=== PATIENT | female | born 1970 | race Caucasian/White ===

== ENCOUNTER 2019-10-13 08:21 | Emergency (ER) | payer BC ==
[2019-10-13] MEDS ORDERED: IPRATROPIUM/ALBUTEROL 0.5-2.5 MG/3 ML AMPUL NEB ONE (09:14)
--- NOTE | 2019-10-13 09:17 | ER Document Report ---
HPI - HPI Time Seen by Provider: 10/13/19 09:09 Pain Level: 3 Notes: 48-year-old female presents to the emergency room with complaints of a cough for the last 5 days, productive of green, denies a history of smoking, asthma, COPD. Patient states that if she had a fever of 101 with head congestion, shortness of breath with coughing. Has not tried any [id number] medications. Sick contacts. Patient did get a flu shot this year. Denies fevers, chills, chest pain,palpitations, shortness of breath, dyspnea, nausea, vomiting, diarrhea, abdominal pain, hematuria,blurred vision, double vision, loss of vision, speech changes, LH, dizziness, syncope, headaches, ST, neck pain, weakness, bowel or bladder dysfunction, saddle anesthesia, numbness or tingling in bilateral upper or lower extremities equally, muscle paralysis, weakness in bilateral upper or lower extremities equally or rash. - REPRODUCTIVE Reproductive: DENIES: : Past Medical History - General Information source: Patient - Social History Smoking Status: Never Smoker Chew tobacco use (# tins/day): No Frequency of alcohol use: None Drug Abuse: None Family History: Reviewed & Not Pertinent Patient has suicidal ideation: No Patient has homicidal ideation: No Vertical Provider Document - CONSTITUTIONAL Agree With Documented VS: Yes Exam Limitations: No Limitations General Appearance: WD/WN Notes: PHYSICAL EXAMINATION:reviewed vital signs by RN GENERAL: Well-appearing, well-nourished and in no acute distress. HEAD: Atraumatic, normocephalic. EYES: Pupils equal round and reactive to light, extraocular movements intact, conjunctiva are normal. ENT: TM intact with bilateral serous effusion, no erythema. Nares boggy bilaterally, oropharynx with erythema without exudates. Moist mucous membranes. NECK: Normal range of motion, supple without lymphadenopathy LUNGS: Noted wheezing in bilateral upper lobes. After breathing treatment, b reath sounds clear in all lobes no wheezes rales or rhonchi. HEART: Regular rate and rhythm without murmurs ABDOMEN: Soft, nontender, nondistended abdomen. No guarding, no rebound. No masses appreciated. Female : deferred Musculoskeletal: Normal range of motion, no pitting or edema. No cyanosis. NEUROLOGICAL: Cranial nerves grossly intact. Normal speech, normal gait. Normal sensory, motor exams PSYCH: Normal mood, normal affect. SKIN: Warm, Dry, normal turgor, no rashes or lesions noted. - INFECTION CONTROL TRAVEL OUTSIDE OF THE [place] IN LAST 30 DAYS: No Course - Re-evaluation Re-evalutation: 10/13/19 12:35 Afebrile vital stable no distress. Patient's pulse ox slightly no low ranges between 97-94 but patient coughs and pulse ox does go up to 97% witnessed by this provider Patient given DuoNeb, no wheezing noted on auscultation of the lungs prior to DuoNeb.Presentation is most consistent with a viral upper respiratory infection. CBC negative for leukocytosis or anemia, no hepatic or renal dysfunction, no electrolyte disturbances on CMP. Patient given 10 mg of Decadron IM as well as oral prednisone, pro-air and Tessalon Perles to go home with. Patient is overall well appearance, vitals within normal limits, well- hydrated. Patient denies any headache, neck pain, and has no evidence of meningismus on examination. Lungs are clear bilaterally. No evidence of respiratory distress. Based on clinical exam and history, I do not suspect an acute pneumonia, meningitis, strep pharyngitis, or an acute encephalitis. N Will discharge patient with return precautions and followup recommendations. They are in agreement this plan have verbalized understanding return precautions. 10/13/19 12:39 - Vital Signs Vital signs: Temp Pulse Resp BP Pulse Ox 97.7 F 76 18 106/66 94 10/13/19 09:08 10/13/19 08:29 10/13/19 09:08 10/13/19 08:29 10/13/19 09:08 - Laboratory Result Diagrams: 10/13/19 09:20 10/13/19 09:20 Discharge - Discharge Clinical Impression: Cough, Wheezing Disposition: HOME, SELF-CARE Instructions: Cough Suppressant & Expectorant Medications Additional Instructions: Your chest x-ray was negative for pneumonia. Please use medication as directed. Prescriptions: Albuterol Sulfate [Proair Respiclick] 90 mcg IH Q4HP PRN #1 aer.pow.ba PRN Reason: Benzonatate [Tessalon Perles 100 mg Capsule] 100 mg PO Q8HP PRN #20 capsule PRN Reason: Prednisone [Deltasone 20 mg Tablet] 3 tab PO DAILY 5 Days #15 tablet Fluconazole [Diflucan] 150 mg PO ONCE PRN #3 tablet PRN Reason: Forms: Return to Work Referrals: ADI ARMENDARIZ MD [COMMUNITY BASED STAFF] - Follow up as needed
[2019-10-13 09:38] LABS: ABSOLUTE BASOPHILS # (AUTO) 0.1 10^3/uL (0.0-0.2); ABSOLUTE EOSINOPHILS # (AUTO) 0.6 10^3/uL (0.0-0.6); ABSOLUTE LYMPHOCYTES (AUTO) 2.3 10^3/uL (0.5-4.7); ABSOLUTE MONOCYTES (AUTO) 0.8 10^3/uL (0.1-1.4); ABSOLUTE NEUT (AUTO) 9.3 10^3/uL (1.7-8.2); BASOPHILS % (AUTO) 0.7 % (0-2); EOSINOPHILS % (AUTO) 4.4 % (0-6); HEMATOCRIT 38.5 % (36.0-47.0); HEMOGLOBIN 13.6 g/dL (12.0-15.5); LYMPHOCYTES % (AUTO) 17.7 % (13-45); MEAN CORPUSCULAR HEMOGLOBIN 31.9 pg (27.0-33.4); MEAN CORPUSCULAR HGB CONC 35.4 g/dL (32.0-36.0); MEAN CORPUSCULAR VOLUME 90 fl (80-97); MONOCYTES % (AUTO) 6.3 % (3-13); PLATELET COUNT 300 10^3/uL (150-450); RED BLOOD COUNT 4.27 10^6/uL (3.72-5.28); RED CELL DISTRIBUTION WIDTH 12.3 % (11.5-14.0); SEGMENTED NEUTROPHILS % (AUTO) 70.9 % (42-78); TOTAL CELLS COUNTED % (AUTO) 100 %; WHITE BLOOD COUNT 13.1 10^3/uL (4.0-10.5)
--- NOTE | 2019-10-13 09:39 | RADIOLOGY REPORT (SQ) ---
EXAM DESCRIPTION: CHEST 2 VIEWS COMPLETED DATE/TIME: 10/13/2019 9:29 am REASON FOR STUDY: cough, sob, 93% on RA COMPARISON: None. EXAM PARAMETERS: NUMBER OF VIEWS: two views TECHNIQUE: Digital Frontal and Lateral radiographic views of the chest acquired. RADIATION DOSE: NA LIMITATIONS: none FINDINGS: LUNGS AND PLEURA: No opacities, masses or pneumothorax. No pleural effusion. MEDIASTINUM AND HILAR STRUCTURES: No masses or contour abnormalities. HEART AND VASCULAR STRUCTURES: Heart normal size. No evidence for failure. BONES: No acute findings. HARDWARE: None in the chest. OTHER: No other significant finding. IMPRESSION: NO ACUTE RADIOGRAPHIC FINDING IN THE CHEST. TECHNICAL DOCUMENTATION: JOB ID: [id number] [id number]- All Rights Reserved Reading location - IP/workstation name: [email or web address]
[2019-10-13 10:01] LABS: ALBUMIN 3.6 g/dL (3.5-5.0); ALKALINE PHOSPHATASE 108 U/L (38-126); ANION GAP 13 (5-19); ASPARTATE AMINO TRANSFERASE 20 U/L (14-36); BILIRUBIN,DIRECT 0.1 mg/dL (0.0-0.4); BILIRUBIN,TOTAL 0.7 mg/dL (0.2-1.3); BLOOD UREA NITROGEN 13 mg/dL (7-20); CARBON DIOXIDE 28 mmol/L (22-30); CHLORIDE 95 mmol/L (98-107); GLUCOSE 175 mg/dL (75-110); POTASSIUM 4.2 mmol/L (3.6-5.0); TOTAL PROTEIN 6.9 g/dL (6.3-8.2)
[2019-10-13] MEDS ORDERED: DEXAMETHASONE SOD PHOS INJ 10 MG/1 ML VIAL IM ONE (11:09)
[2019-10-13 12:11] VITALS: BP 116/59
== END 2019-10-13 12:14 | disposition home or self-care (01) ==
LOC: ER 08:21
DX: R05 Cough (principal); R06.2 Wheezing; R50.9 Fever, unspecified
CPT/HCPCS: 36415; 85025; 80053; 71046; J1100; J7620; 94640; 96372; 99285

== ENCOUNTER 2019-10-20 18:27 | Inpatient (IN) | payer BC ==
[2019-10-20 19:28] LABS: ABSOLUTE BASOPHILS # (AUTO) 0.1 10^3/uL (0.0-0.2); ABSOLUTE EOSINOPHILS # (AUTO) 0.6 10^3/uL (0.0-0.6); ABSOLUTE LYMPHOCYTES (AUTO) 3.5 10^3/uL (0.5-4.7); ABSOLUTE MONOCYTES (AUTO) 0.8 10^3/uL (0.1-1.4); ABSOLUTE NEUT (AUTO) 7.6 10^3/uL (1.7-8.2); BASOPHILS % (AUTO) 0.5 % (0-2); EOSINOPHILS % (AUTO) 4.7 % (0-6); HEMOGLOBIN 13.7 g/dL (12.0-15.5); LYMPHOCYTES % (AUTO) 27.8 % (13-45); MEAN CORPUSCULAR HEMOGLOBIN 31.8 pg (27.0-33.4); MEAN CORPUSCULAR HGB CONC 35.1 g/dL (32.0-36.0); MEAN CORPUSCULAR VOLUME 91 fl (80-97); PLATELET COUNT 265 10^3/uL (150-450); RED BLOOD COUNT 4.31 10^6/uL (3.72-5.28); RED CELL DISTRIBUTION WIDTH 12.5 % (11.5-14.0); TOTAL CELLS COUNTED % (AUTO) 100 %; WHITE BLOOD COUNT 12.5 10^3/uL (4.0-10.5)
[2019-10-20 19:43] LABS: ALBUMIN 3.5 g/dL (3.5-5.0); ALKALINE PHOSPHATASE 108 U/L (38-126); ANION GAP 9 (5-19); ASPARTATE AMINO TRANSFERASE 18 U/L (14-36); BILIRUBIN,DIRECT 0.2 mg/dL (0.0-0.4); BILIRUBIN,TOTAL 0.7 mg/dL (0.2-1.3); BLOOD UREA NITROGEN 10 mg/dL (7-20); CALCIUM 9.2 mg/dL (8.4-10.2); CARBON DIOXIDE 32 mmol/L (22-30); CHLORIDE 95 mmol/L (98-107); GLUCOSE 184 mg/dL (75-110); POTASSIUM 3.8 mmol/L (3.6-5.0); TOTAL PROTEIN 6.7 g/dL (6.3-8.2)
--- NOTE | 2019-10-20 20:17 | RADIOLOGY REPORT (SQ) ---
XR CHEST 1 VIEW EXAM DATE: 10/20/2019 7:05 PM [employer] HISTORY: Dyspnea. COMPARISON: None. FINDINGS: Normal heart size without pulmonary edema. The lungs are clear. No pleural effusions or pneumothorax. No acute bony findings are seen. IMPRESSION: No evidence of acute cardiopulmonary disease.
--- NOTE | 2019-10-20 20:18 | EKG REPORT ---
SEVERITY:- BORDERLINE ECG - SINUS RHYTHM VENTRICULAR PREMATURE COMPLEX BORDERLINE T ABNORMALITIES, DIFFUSE LEADS : Confirmed by: Carla Lin MD 20-Oct-2019 20:17:12
[2019-10-20] MEDS ORDERED: IPRATROPIUM/ALBUTEROL 0.5-2.5 MG/3 ML AMPUL NEB ONE ×2 (20:48→23:01)
[2019-10-20] MEDS ORDERED: METHYLPREDNISOLONE INJ 125 MG/2 ML SDV IV ONE (20:49)
--- NOTE | 2019-10-20 21:11 | ER Document Report ---
ED General - General Chief Complaint: Breathing Difficulty Stated Complaint: TROUBLE BREATHING Time Seen by Provider: 10/20/19 20:03 Primary Care Provider: LAKSHMI BRITO NP [Primary Care Provider] - Follow up as needed TRAVEL OUTSIDE OF THE [place] IN LAST 30 DAYS: No - HPI Notes: 48-year-old female with a chief complaint of difficulty breathing. Patient was seen in the emergency department here 12 days ago with an acute bronchitis and was sent out on oral steroids and albuterol metered-dose inhaler. She improved with this treatment and completed the steroids. She works as a registered nurse here in the hospital and was working up on the floor when she suddenly developed intense bronchospasm and felt as though she could not breathe. This occurred after a paroxysm of coughing. She is producing scant amounts of white sputum. She denies fever. Patient was placed on low-flow oxygen and given a nebulizer treatment and sent to the ED. She still coughing somewhat feels much better. Patient is a non-smoker. She denies exposure to secondhand smoke. No vaping. No prior history of respiratory problems up until her recent ED visit. Denies any personal or familial history of thromboembolic disease. Patient has a history of hypertension. Also has hyperlipidemia. No known history of CAD or CHF. Patient has received flu immunization this season. - Related Data Allergies/Adverse Reactions: acetaminophen [From Percocet] Allergy (Verified 10/13/19 09:08) hydromorphone [From Dilaudid] Allergy (Verified 10/13/19 09:08) oxycodone [From Percocet] Allergy (Verified 10/13/19 09:08) Past Medical History - General Information source: Patient, Relative - Social History Smoking Status: Never Smoker Family History: Reviewed & Not Pertinent Patient has suicidal ideation: No Patient has homicidal ideation: No - Past Medical History Cardiac Medical History: Reports: Hx Hypercholesterolemia, Hx Hypertension Pulmonary Medical History: Reports: Hx Bronchitis Renal/ Medical History: Reports: Hx Kidney Stones GI Medical History: Reports: Hx Gastroesophageal Reflux Disease Musculoskeletal Medical History: Reports Hx Arthritis Past Surgical History: Reports: Hx Section - x3, Hx Cholecystectomy, Hx Hysterectomy, Hx Orthopedic Surgery, Hx Tonsillectomy Review of Systems - Review of Systems Notes: Constitutional: Negative for fever. HENT: Negative for sore throat. Eyes: Negative for visual changes. Cardiovascular: Negative for chest pain. Respiratory: As per HPI. Gastrointestinal: Negative for abdominal pain, vomiting or diarrhea. Genitourinary: Negative for dysuria. Musculoskeletal: Negative for back pain. Skin: Negative for rash. Neurological: Negative for headaches, weakness or numbness. 10 point ROS negative except as marked above and in HPI. Physical Exam - Vital signs Vitals: Temp Pulse Resp BP Pulse Ox 98.6 F 100 24 H 136/71 H 97 10/20/19 18:37 10/20/19 18:37 10/20/19 18:37 10/20/19 18:37 10/20/19 18:37 - Notes Notes: GENERAL: Well-developed well-nourished appearing in no acute distress. SKIN: Good turgor no rashes. HEAD: Normocephalic atraumatic. EYES: PERRLA. EOMI. Conjunctivae and sclerae clear. EARS: CANALS AND TMS CLEAR. NOSE: CLEAR. MOUTH: Moist mucosa. Good dentition. No stridor or edema. No drooling. NECK: Supple. No masses or thyromegaly. No adenopathy. Carotids 2+ without bruits. No JVD. BACK: Mild dorsal kyphosis. Symmetrical without tenderness. CHEST: Respirations unlabored. Scattered faint wheezes and rhonchi bilaterally. HEART: Regular rhythm. No murmur gallop or rub. ABDOMEN: Soft nontender without masses, organomegaly or rebound. Bowel sounds normally active. No bruits. GENITALIA: Deferred. EXTREMITIES: No edema. No calf tenderness. Cap refill less than 1.5 seconds. Dorsalis pedis and posterior tibial pulses 3+ and symmetrical. NEUROLOGICAL: GCS 15. Alert and oriented x3. Fluent speech. Cranial nerves II through XII intact. Sensorimotor and cerebellar normal. Normal tone. PSYCHIATRIC: Anxious. Course - Re-evaluation Re-evalutation: 10/20/19 21:11 Records of prior ED visit reviewed in detail. Current findings are consistent with acute bronchospasm. I will give her IV Solu-Medrol and repeat some nebulizer treatments. If she is able to maintain good saturation on room air I think she can probably just be discharged on oral medications and follow-up with PMD. 10/20/19 23:33 Patient desaturated when we took her off oxygen down to about 90%. She has more wheezes on repeat auscultation. Have given her another neb treatment and she still only running about 90% saturation on room air. Saturations good when I put her back up to 2 L of nasal O2. She understands need for admission at this time. Case is been discussed with the on-call hospitalist Dr. Sheppard who will admit t o the floor. - Vital Signs Vital signs: Temp Pulse Resp BP Pulse Ox 98.6 F 100 24 H 136/71 H 97 10/20/19 18:37 10/20/19 18:37 10/20/19 18:37 10/20/19 18:37 10/20/19 18:37 - Laboratory Result Diagrams: 10/20/19 19:10 10/20/19 19:10 Laboratory results interpreted by me: 10/20/19 10/20/19 19:10 19:10 WBC 12.5 H Sodium 136.4 L Chloride 95 L Carbon Dioxide 32 H Glucose 184 H - Diagnostic Test Radiology reviewed: Reports reviewed Radiology results interpreted by me: 10/20/19 21:11 Chest x-ray read as normal by radiologist - EKG Interpretation by Me Additional EKG results interpreted by me: 10/20/19 21:41 Normal sinus rhythm. Rate 94. Normal axis. Nonspecific T wave changes. Single PVC. Discharge - Discharge Clinical Impression: Acute bronchitis, Hypoxemia Condition: Stable Disposition: ADMITTED INPATIENT Unit Admitted: Medical Floor Referrals: LAKSHMI BRITO, REGULATORY PRODUCT MANAGER [Primary Care Provider] - Follow up as needed
[2019-10-21 00:14] LABS: APPEARANCE,URINE CLEAR; BILIRUBIN,URINE NEGATIVE (NEGATIVE); COLOR,URINE YELLOW; GLUCOSE, URINE >=500 mg/dL (NEGATIVE); KETONES,URINE TRACE mg/dL (NEGATIVE); LEUKOCYTE ESTERASE,URINE NEGATIVE (NEGATIVE); NITRITE,URINE NEGATIVE (NEGATIVE); PROTEIN,URINE NEGATIVE (NEGATIVE); URINE SPECIFIC GRAVITY 1.012; UROBILINOGEN,URINE NEGATIVE mg/dL (<2.0)
[2019-10-21] MEDS ORDERED: LEVALBUTEROL HCL NEB 0.63 MG/3 ML AMPUL NEB PRN (01:21)
[2019-10-21] MEDS ORDERED: MAGNESIUM HYDROXIDE SUSP 30 ML UDCUP PO PRN (01:21)
[2019-10-21] MEDS ORDERED: MAG HYDROX/AL HYDROX/SIMETH SUSP 30 ML UDCUP PO PRN (01:21)
[2019-10-21] MEDS ORDERED: ONDANSETRON HCL INJ/PF 4 MG/2 ML SDV IV PRN (01:21)
[2019-10-21] MEDS ORDERED: IBUPROFEN 800 MG TABLET PO PRN (01:25)
--- NOTE | 2019-10-21 02:59 | PDOC H&P ---
History of Present Illness Admission Date/PCP: 10/20/19 23:44 LAKSHMI BRITO NP Patient complains of: Dyspnea History of Present Illness: HELIO WINTERS is a 48 year old female who presented to the emergency room with acute dyspnea. She admits suddenly developing dyspnea while at work today here at the hospital. Her dyspnea has been accompanied by wheezing and air hunger. The episode was preceded by a paroxysmal coughing episode, productive of whitish sputum. She was treated for an acute bronchitis with bronchospasm 12 days ago using an albuterol MDI and a Dosepak course of oral steroids. She denies other associated or accompanying signs and symptoms. She denies prior similar episodes. She has not identified any additional aggravating or ameliorating factors for her dyspnea. In the emergency room she was found to have an essentially unremarkable evaluation with the exception of an O2 sat of 89 to 90% on room air improving to greater than 93% with 2 L of oxygen per nasal cannula. Patient was subsequently admitted to the hospital for further evaluation treatment. Past Medical History Cardiac Medical History: Reports: Hyperlipidema, Hypertension Pulmonary Medical History: Reports: Bronchitis Denies: Asthma, Chronic Obstructive Pulmonary Disease (COPD), Respiratory Failure EENT Medical History: Denies: Cataracts, Ears - Hearing aids Neurological Medical History: Denies: Hemorrhagic CVA, Ischemic CVA, Seizures Endocrine Medical History: Reports: Obesity Denies: Diabetes Mellitus Type 1, Diabetes Mellitus Type 2, Hyperthyroidism, Hypothyroidism Renal/ Medical History: Denies: Chronic Kidney Disease, Nephrolithiasis Malignancy Medical History: Reports: None GI Medical History: Reports: Gastroesophageal Reflux Disease Denies: Cirrhosis, Crohn's Disease, Hepatitis, Ulcerative Colitis Musculoskeltal Medical History: Reports: Arthritis Denies: Gout Skin Medical History: Denies: Eczema, Psoriasis Psychiatric Medical History: Denies: Alcohol Dependency, Substance Abuse, Tobacco Dependency Traumatic Medical History: Reports: None Hematology: Denies: Anemia, Bleeding Tendencies Infectious Medical History: Reports: None Past Surgical History Past Surgical History: Reports: Section - x3, Cholecystectomy, Hysterectomy, Orthopedic Surgery, Tonsillectomy Social History Information Source: Patient Lives with: Family, Spouse/Significant other Smoking Status: Never Smoker Electronic Cigarette use?: No Frequency of Alcohol Use: None Hx Recreational Drug Use: No Drugs: None Hx Prescription Drug Abuse: No - Advance Directive Resuscitation Status: Full Code Surrogate healthcare decision maker:: Edmond Winters Family History Family History: denies: CAD, DM, Hypertension, Malignancy Parental Family History Reviewed: Yes Children Family History Reviewed: No Sibling(s) Family History Reviewed.: Yes Medication/Allergy Home Medications: Albuterol Sulfate [Proair Respiclick] 90 mcg IH Q4HP PRN #1 aer.pow.ba 10/13/19 Benzonatate [Tessalon Perles 100 mg Capsule] 100 mg PO Q8HP PRN #20 capsule 10/13/19 Fluconazole [Diflucan] 150 mg PO ONCE PRN #3 tablet 10/13/19 Prednisone [Deltasone 20 mg Tablet] 3 tab PO DAILY 5 Days #15 tablet 10/13/19 Allergies/Adverse Reactions: acetaminophen [From Percocet] Allergy (Verified 10/13/19 09:08) hydromorphone [From Dilaudid] Allergy (Verified 10/13/19 09:08) oxycodone [From Percocet] Allergy (Verified 10/13/19 09:08) Review of Systems Constitutional: ABSENT: chills, fever(s) Eyes: ABSENT: visual disturbances, other - Eye pain Ears: ABSENT: hearing changes, other - Ear pain Nose, Mouth, and Throat: ABSENT: headache(s), mouth pain Cardiovascular: ABSENT: chest pain, dyspnea on exertion, orthropnea, palpitations Respiratory: PRESENT: as per HPI, cough, dyspnea, other - Wheezing Gastrointestinal: ABSENT: abdominal pain, constipation, diarrhea, nausea, vomiting Genitourinary: ABSENT: dysuria, hematuria Musculoskeletal: ABSENT: back pain, joint swelling, muscle weakness Integumentary: ABSENT: pruritus, rash Neurological: ABSENT: confusion, convulsions, focal weakness, memory loss, syncope Psychiatric: ABSENT: anxiety, depression Endocrine: ABSENT: cold intolerance, heat intolerance Hematologic/Lymphatic: ABSENT: easy bleeding, easy bruising Allergic/Immunologic: ABSENT: seasonal rhinorrhea Physical Exam Vital Signs: Temp Pulse Resp BP Pulse Ox 98.9 F 100 21 H 136/79 H 96 10/21/19 00:00 10/20/19 18:37 10/21/19 00:01 10/21/19 00:01 10/21/19 00:01 Intake & Output 10/19/19 10/20/19 10/21/19 23:59 23:59 23:59 Weight 183.8 kg General appearance: PRESENT: no acute distress, cooperative, morbidly obese, other - On supplemental oxygen per nasal cannula Head exam: PRESENT: atraumatic, normocephalic Eye exam: PRESENT: conjunctiva pink. ABSENT: conjunctival injection, scleral icterus Ear exam: PRESENT: normal external ear exam. ABSENT: bleeding, drainage Mouth exam: PRESENT: dry mucosa, neck supple Neck exam: ABSENT: thyromegaly, tracheal deviation Respiratory exam: PRESENT: prolonged expiratory phas - Minimally prolonged expiratory phase present throughout all grover, symmetrical, wheezes - Minimal expiratory wheezes present throughout all grover, other - On supplemental oxygen via nasal cannula at 2 L/min. Cardiovascular exam: PRESENT: RRR. ABSENT: clicks, gallop, rubs Pulses: PRESENT: normal radial pulses. ABSENT: normal dorsalis pedis pul Vascular exam: PRESENT: normal capillary refill. ABSENT: pallor GI/Abdominal exam: PRESENT: normal bowel sounds, soft. ABSENT: tenderness Rectal exam: PRESENT: deferred Extremities exam: ABSENT: joint swelling, pedal edema Musculoskeletal exam: ABSENT: deformity, dislocation Neurological exam: PRESENT: alert, oriented to person, oriented to place, oriented to time, oriented to situation, CN II-XII grossly intact. ABSENT: motor sensory deficit Psychiatric exam: PRESENT: appropriate affect, normal mood Skin exam: PRESENT: dry, intact, warm. ABSENT: jaundice, rash, urticaria Results Laboratory Results: 10/20/19 19:10 10/20/19 19:10 10/20/19 10/20/19 10/20/19 19:10 19:10 23:50 WBC 12.5 H RBC 4.31 Hgb 13.7 Hct 39.0 MCV 91 MCH 31.8 MCHC 35.1 RDW 12.5 Plt Count 265 Seg Neutrophils % 61.0 Sodium 136.4 L Potassium 3.8 Chloride 95 L Carbon Dioxide 32 H Anion Gap 9 BUN 10 Creatinine 0.52 Est GFR ( Amer) > 60 Glucose 184 H Calcium 9.2 Total Bilirubin 0.7 AST 18 Alkaline Phosphatase 108 Total Protein 6.7 Albumin 3.5 Urine Color YELLOW Urine Appearance CLEAR Urine pH 6.0 Ur Specific Stacy 1.012 Urine Protein NEGATIVE Urine Glucose (UA) >=500 H Urine Ketones TRACE H Urine Blood NEGATIVE Urine Nitrite NEGATIVE Ur Leukocyte Esterase NEGATIVE Urine WBC (Auto) 9 Urine RBC (Auto) 1 12/24/19 19:07 Troponin I < 0.012 Impressions: Chest X-Ray 10/20/19 19:05 IMPRESSION: No evidence of acute cardiopulmonary disease. Assessment and Plan - Diagnosis (1) Acute bronchitis with bronchospasm Is this a current diagnosis for this admission?: Yes (2) Acute respiratory failure with hypoxia Is this a current diagnosis for this admission?: Yes (3) Morbid obesity Is this a current diagnosis for this admission?: Yes (4) Hypertension Qualifiers: Hypertension type: essential hypertension Qualified Code(s): I10 - Essential (primary) hypertension Is this a current diagnosis for this admission?: Yes (5) Hyperlipidemia Qualifiers: Hyperlipidemia type: unspecified Qualified Code(s): E78.5 - Hyperlipidemia, unspecified Is this a current diagnosis for this admission?: Yes - Plan Summary Summary: Patient is admitted to the medical floor where she will be receiving routine supportive and symptomatic cares. She will be started on aggressive pulmonary toilet utilizing Xopenex, Atrovent and Pulmicort. She will be treated with IV steroids utilizing Solu-Medrol. She will be continued on supplemental oxygen as required to maintain an O2 sat of greater than 93%. - Time Time Spent with patient: 15-24 minutes Medications reviewed and adjusted accordingly: Yes Anticipated discharge: Home - Inpatient Certification Based on my medical assessment, after consideration of the patient's com orbidities, presenting symptoms, or acuity I expect that the services needed warrant INPATIENT care.: Yes I certify that my determination is in accordance with my understanding of Medicare's requirements for reasonable and necessary INPATIENT services [42 CFR 412.3e].: Yes Medical Necessity: Failure to Improve With Outpatient Therapy, Need Close Monitoring Due to Risk of Patient Decompensation, Need for Nebulizer Therapy and Monitoring of Response
[2019-10-21] MEDS ORDERED: METHYLPREDNISOLONE INJ 40 MG/1 ML SDV IV SCH (06:00)
[2019-10-21] MEDS ORDERED: HEPARIN SOD (PORCINE) 5,000 UNIT/ML 1 ML VIAL SUBCUT SCH (06:00)
[2019-10-21] MEDS ORDERED: BUDESONIDE NEB 0.5 MG/2 ML AMPUL NEB SCH (08:00)
[2019-10-21] MEDS ORDERED: IPRATROPIUM BROMIDE 0.02% NEB 0.5 MG/2.5 ML AMPUL NEB SCH (08:00)
[2019-10-21] MEDS ORDERED: LEVALBUTEROL HCL NEB 1.25 MG/3 ML AMPUL NEB SCH (08:00)
[2019-10-21] MEDS ORDERED: METOPROLOL TARTRATE PF/INJ 5 MG/5 ML SDV IV PRN (08:05)
[2019-10-21] MEDS ORDERED: HYDRALAZINE HCL INJ/PF 20 MG/1 ML SDV IV PRN (08:05)
[2019-10-21 09:44] VITALS: BP 116/56
[2019-10-21] MEDS ORDERED: FAMOTIDINE 20 MG TABLET PO SCH (10:00)
[2019-10-21] MEDS ORDERED: LEVOFLOXACIN 750 MG TABLET PO SCH (10:00)
[2019-10-21] MEDS ORDERED: DOCUSATE SODIUM 100 MG CAPSULE PO SCH (10:00)
--- NOTE | 2019-10-21 14:11 | PDOC DISCHARGE SUMMARY ---
Impression - Admit/DC Date/PCP Admission Date/Primary Care Provider: 10/20/19 23:44 LAKSHMI BRITO NP Discharge Date: 10/21/19 - Discharge Diagnosis (1) Acute asthma exacerbation Is this a current diagnosis for this admission?: Yes (2) Acute respiratory failure with hypoxia Is this a current diagnosis for this admission?: Yes (3) Bronchitis Is this a current diagnosis for this admission?: Yes - Assessment Summary: Patient is admitted to the medical floor where she will be receiving routine supportive and symptomatic cares. She will be started on aggressive pulmonary toilet utilizing Xopenex, Atrovent and Pulmicort. She will be treated with IV steroids utilizing Solu-Medrol. She will be continued on supplemental oxygen as required to maintain an O2 sat of greater than 93%. - Additional Information Resuscitation Status: Full Code Discharge Diet: As Tolerated Discharge Activity: Activity As Tolerated Referrals: LAKSHMI BRITO, LUIS [Primary Care Provider] - Follow up as needed (pt is an employee, She will make her own follow up) Prescriptions: Fluconazole 200 mg PO DAILY 4 Days #4 tablet Levofloxacin [Levaquin 750 mg Tablet] 750 mg PO DAILY 4 Days #4 tablet Prednisone 50 mg PO DAILY 4 Days #4 tablet Budesonide/Formoterol Fumarate [Symbicort Hfa 160-4.5 Mcg Inhaler 6 gm] 2 puff IH Q12 30 Days #1 inhaler Home Medications: Budesonide/Formoterol Fumarate [Symbicort Hfa 160-4.5 Mcg Inhaler 6 gm] 2 puff IH Q12 30 Days #1 inhaler 10/21/19 Fluconazole 200 mg PO DAILY 4 Days #4 tablet 10/21/19 Levofloxacin [Levaquin 750 mg Tablet] 750 mg PO DAILY 4 Days #4 tablet 10/21/19 Prednisone 50 mg PO DAILY 4 Days #4 tablet 10/21/19 History of Present Illiness History of Present Illness: HELIO WINTERS is a 48 year old female who presented to the emergency room with acute dyspnea. She admits suddenly developing dyspnea while at work today here at the hospital. Her dyspnea has been accompanied by wheezing and air hunger. The episode was preceded by a paroxysmal coughing episode, productive of whitish sputum. She was treated for an acute bronchitis with bronchospasm 12 days ago using an albuterol MDI and a Dosepak course of oral steroids. She denies other associated or accompanying signs and symptoms. She denies prior similar episodes. She has not identified any additional aggravating or ameliorating factors for her dyspnea. In the emergency room she was found to have an essentially unremarkable evaluation with the exception of an O2 sat of 89 to 90% on room air improving to greater than 93% with 2 L of oxygen per nasal cannula. Patient was subsequently admitted to the hospital for further evaluation treatment. Hospital Course Hospital Course: (1) Acute asthma exacerbation History of intermittent asthma on albuterol rescue inhaler. Patient was admitted to telemetry, started on IV steroids, empiric IV antibiotics, duo nebs, and supplemental oxygen. Moderate improvement. SPO2 WNL on RA. Clear lung examination. Was discharged on prednisone 50 mg for another 4 days, levofloxacin 750 mg p.o. for 4 days, Pulmicort and albuterol. As to follow-up with PCP. (2) Acute respiratory failure with hypoxia As per #1. 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 Chest x-ray WNL. Mild leukocytosis with no bandemia. Afebrile. Was started on empiric antibiotics. Discharged on levofloxacin 750 mg p.o. for 4 days. Physical Exam Vital Signs: Temp Pulse Resp BP Pulse Ox 97.5 F 113 H 16 116/56 L 96 10/21/19 09:40 10/21/19 09:40 10/21/19 09:40 10/21/19 09:40 10/21/19 09:40 Intake & Output 10/20/19 10/21/19 10/22/19 06:59 06:59 06:59 Weight 85 kg General appearance: PRESENT: obese Respiratory exam: PRESENT: clear to auscultation halima. ABSENT: rales, rhonchi, wheezes Cardiovascular exam: PRESENT: RRR. ABSENT: diastolic murmur, rubs, systolic murmur Pulses: PRESENT: normal dorsalis pedis pul GI/Abdominal exam: PRESENT: normal bowel sounds, soft. ABSENT: distended, guarding, mass, organolmegaly, rebound, tenderness Neurological exam: PRESENT: alert, awake, oriented to person, oriented to place, oriented to time, oriented to situation, CN II-XII grossly intact. ABSENT: motor sensory deficit Skin exam: PRESENT: dry, intact, warm. ABSENT: cyanosis, rash Results Laboratory Results: WBC 12.5 10^3/uL (4.0-10.5) H 10/20/19 19:10 RBC 4.31 10^6/uL (3.72-5.28) 10/20/19 19:10 Hgb 13.7 g/dL (12.0-15.5) 10/20/19 19:10 Hct 39.0 % (36.0-47.0) 10/20/19 19:10 MCV 91 fl (80-97) 10/20/19 19:10 MCH 31.8 pg (27.0-33.4) 10/20/19 19:10 MCHC 35.1 g/dL (32.0-36.0) 10/20/19 19:10 RDW 12.5 % (11.5-14.0) 10/20/19 19:10 Plt Count 265 10^3/uL (150-450) 10/20/19 19:10 Lymph % (Auto) 27.8 % (13-45) 10/20/19 19:10 [place] % (Auto) 6.0 % (3-13) 10/20/19 19:10 Eos % (Auto) 4.7 % (0-6) 10/20/19 19:10 Baso % (Auto) 0.5 % (0-2) 10/20/19 19:10 Absolute Neuts (auto) 7.6 10^3/uL (1.7-8.2) 10/20/19 19:10 Absolute Lymphs (auto) 3.5 10^3/uL (0.5-4.7) 10/20/19 19:10 Absolute Monos (auto) 0.8 10^3/uL (0.1-1.4) 10/20/19 19:10 Absolute Eos (auto) 0.6 10^3/uL (0.0-0.6) 10/20/19 19:10 Absolute Basos (auto) 0.1 10^3/uL (0.0-0.2) 10/20/19 19:10 Seg Neutrophils % 61.0 % (42-78) 10/20/19 19:10 Sodium 136.4 mmol/L (137-145) L 10/20/19 19:10 Potassium 3.8 mmol/L (3.6-5.0) 10/20/19 19:10 Chloride 95 mmol/L (98-107) L 10/20/19 19:10 Carbon Dioxide 32 mmol/L (22-30) H 10/20/19 19:10 Anion Gap 9 (5-19) 10/20/19 19:10 BUN 10 mg/dL (7-20) 10/20/19 19:10 Creatinine 0.52 mg/dL (0.52-1.25) 10/20/19 19:10 Est GFR ( Amer) > 60 (>60) 10/20/19 19:10 Est GFR (MDRD) Non-Af > 60 (>60) 10/20/19 19:10 Glucose 184 mg/dL (75-110) H 10/20/19 19:10 Calcium 9.2 mg/dL (8.4-10.2) 10/20/19 19:10 Total Bilirubin 0.7 mg/dL (0.2-1.3) 10/20/19 19:10 Direct Bilirubin 0.2 mg/dL (0.0-0.4) 10/20/19 19:10 Neonat Total Bilirubin Not Reportable 10/20/19 19:10 Neonat Direct Bilirubin Not Reportable 10/20/19 19:10 Neonat Indirect Bili Not Reportable 10/20/19 19:10 AST 18 U/L (14-36) 10/20/19 19:10 ALT 13 U/L (<35) 10/20/19 19:10 Alkaline Phosphatase 108 U/L (38-126) 10/20/19 19:10 Troponin I < 0.012 ng/mL 10/20/19 19:07 Total Protein 6.7 g/dL (6.3-8.2) 10/20/19 19:10 Albumin 3.5 g/dL (3.5-5.0) 10/20/19 19:10 Urine Color YELLOW 10/20/19 23:50 Urine Appearance CLEAR 10/20/19 23:50 Urine pH 6.0 (5.0-9.0) 10/20/19 23:50 Ur Specific [place] 1.012 10/20/19 23:50 Urine Protein NEGATIVE mg/dL (NEGATIVE) 10/20/19 23:50 Urine Glucose (UA) >=500 mg/dL (NEGATIVE) H 10/20/19 23:50 Urine Ketones TRACE mg/dL (NEGATIVE) H 10/20/19 23:50 Urine Blood NEGATIVE (NEGATIVE) 10/20/19 23:50 Urine Nitrite NEGATIVE (NEGATIVE) 10/20/19 23:50 Urine Bilirubin NEGATIVE (NEGATIVE) 10/20/19 23:50 Urine Urobilinogen NEGATIVE mg/dL (<2.0) 10/20/19 23:50 Ur Leukocyte Esterase NEGATIVE (NEGATIVE) 10/20/19 23:50 Urine WBC (Auto) 9 /HPF 10/20/19 23:50 Urine RBC (Auto) 1 /HPF 10/20/19 23:50 Urine Bacteria (Auto) TRACE /HPF 10/20/19 23:50 Squamous Epi Cells Auto 1 /HPF 10/20/19 23:50 Urine Mucus (Auto) RARE /LPF 10/20/19 23:50 Urine Ascorbic Acid NEGATIVE (NEGATIVE) 10/20/19 23:50 10/20/19 19:07 Troponin I < 0.012 Impressions: Chest X-Ray 10/20/19 19:05 IMPRESSION: No evidence of acute cardiopulmonary disease. Stroke Is this a Stroke Patient?: No Acute Heart Failure - Is this a Heart Failure Patient?: No
== END 2019-10-21 10:03 | disposition home or self-care (01) | DRG 203 ==
LOC: ER 18:27 → EH 23:44 → 4N 10-21 00:55
PROVIDERS: ADMIT Emergency Medicine; ATTEND Emergency Medicine
DX: J45.21 Mild intermittent asthma with (acute) exacerbation (principal); J20.9 Acute bronchitis, unspecified; I10 Essential (primary) hypertension; E78.5 Hyperlipidemia, unspecified; R09.02 Hypoxemia; E66.01 Morbid (severe) obesity due to excess calories; K21.9 Gastro-esophageal reflux disease without esophagitis; M19.90 Unspecified osteoarthritis, unspecified site; Z88.6 Allergy status to analgesic agent; Z88.5 Allergy status to narcotic agent; Z90.49 Acquired absence of other specified parts of digestive tract; Z90.710 Acquired absence of both cervix and uterus; Z79.51 Long term (current) use of inhaled steroids
CPT/HCPCS: 36415; 71045; 80053; 81001; 84484; 85025; 93005; 93010; 94640; 96374; 99285; J1644; J2920; J2930; J3490; J7620

== ENCOUNTER → 2019-10-23 | Outpatient (CLI) | payer BC ==
--- NOTE | 2019-10-24 21:41 | RADIOLOGY REPORT (SQ) ---
EXAM DESCRIPTION: MRI CERVICAL SPINE COMBO COMPLETED DATE/TIME: 10/23/2019 11:58 am REASON FOR STUDY: RADICULOPATHY, CERVICAL REGION M54.12 RADICULOPATHY, CERVICAL REGION Z12.31 ENCN TR SCREEN MAMMOGRAM FOR MALIGNANT NEOPLASM OF COLE COMPARISON: None. TECHNIQUE: Sagittal and Axial imaging includes T1, T2, STIR and gradient echo sequences. T1 post constantin olinium sequences. CONTRAST TYPE AND DOSE: 15 mL Dotarem. RENAL FUNCTION: Not indicated. ACR Type II contrast agent associated with few, if any, unconfounded cases of NSF LIMITATIONS: None. FINDINGS: ALIGNMENT: Normal. VERTEBRAE: Intact. BONE MARROW: Normal. No marrow replacement or reactive changes. DISCS: Variable disc disease. HARDWARE: Anterior instrumentation spanning C5 through C7. CORD AND BASE OF BRAIN: Normal in size and signal intensity. SOFT TISSUES: Mildly nodular thyroid. C1-C2: No significant spinal stenosis. C2-C3: No significant spinal stenosis or exit foraminal stenosis. C3-C4: No significant spinal stenosis or exit foraminal stenosis. C4-C5: Central protrusion contacts the cord without mass effect. C5-C6: No significant spinal stenosis or exit foraminal stenosis. C6-C7: Mild right uncovertebral spurring without stenosis or impingement. C7-T1: No significant spinal stenosis or exit foraminal stenosis. UPPER THORACIC: Incompletely imaged. No significant spinal stenosis or exit foraminal stenosis. ENHANCEMENT: No abnormal enhancement. OTHER: No other significant finding. IMPRESSION: 1. Postoperative changes. C5 through C7 anterior instrumentation. 2. Small C4 disc hernia without cord compression. 3. Other degenerative changes as noted above. No enhancing lesions. No spinal malalignment or fract ure or worrisome bone lesion. 4. Thyroid disease. Incompletely assessed multinodular appearance. COMMENT: None. TECHNICAL DOCUMENTATION: JOB ID: [id number] [employer]- All Rights Reserved Reading location - IP/workstation name: [email or web address]
== END ==
LOC: RAD 10:49
PROVIDERS: ATTEND Nurse Practitioner Family
DX: Z12.31 Encounter for screening mammogram for malignant neoplasm of breast (principal); M54.12 Radiculopathy, cervical region
CPT/HCPCS: 72156; A9576

== ENCOUNTER 2020-05-01 11:19 | Emergency (ER) | payer BC ==
[2020-05-01] MEDS ORDERED: ASPIRIN 81 MG TABLET, CHEWABLE PO ONE (12:09)
--- NOTE | 2020-05-01 12:13 | ER Document Report ---
ED Medical Screen (RME) - General Chief Complaint: Shoulder Pain Stated Complaint: SHOULDER PAIN Time Seen by Provider: 05/01/20 11:58 Primary Care Provider: LAKSHMI BRITO NP [Primary Care Provider] - Follow up as needed Mode of Arrival: Ambulatory Information source: Patient Notes: 49-year-old female presented to ED for complaint of left shoulder pain for al most 3 weeks. She states she does not know of any injury but it is continuing to hurt and not getting any better. She states it is numbness down the left arm. She states she has been to her primary doctor and they were supposed to be given her a orthopedic referral for this pain. She states now it is going into the left chest and the left back. She states she does have a history of tachycardia but no cardiac history besides that. She does have a history of neck fusion IBS kidney stones with lithotripsy pyelonephritis multiple sprains pneumonia gallbladder removed tonsillectomy and a hysterectomy. She states she does not smoke drink or use any illicit drugs. 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 She has had a history of high blood pressure but does not take medicines for this anymore. She states states she is prediabetic. She states she is allergic to Percocet and Dilaudid but does take hydrocodone for the pain at times. He states she did take naproxen 250 mg this morning but it is not helping. I have greeted and performed a rapid initial assessment of this patient. A comprehensive ED assessment and evaluation of the patient, analysis of test results and completion of medical decision making process will be conducted by an additional ED providers. TRAVEL OUTSIDE OF THE [place] IN LAST 30 DAYS: No - Related Data Allergies/Adverse Reactions: acetaminophen [From Percocet] Allergy (Verified 05/01/20 11:53) hydromorphone [From Dilaudid] Allergy (Verified 05/01/20 11:53) oxycodone [From Percocet] Allergy (Verified 05/01/20 11:53) Home Medications: colestipol. gabapentin. omeprazole. zyrtec. allopurinol. atenolol. aleve. hctz. elzvil. metformin. atorvastatin. robaxin Past Medical History - Social History Chew tobacco use (# tins/day): No Frequency of alcohol use: None Drug Abuse: None - Past Medical History Cardiac Medical History: Reports: Hx Hypercholesterolemia, Hx Hypertension Pulmonary Medical History: Reports: Hx Bronchitis Denies: Hx Asthma, Hx COPD, Hx Respiratory Failure Neurological Medical History: Denies: Hx Seizures Endocrine Medical History: Denies: Hx Diabetes Mellitus Type 1, Hx Diabetes Mellitus Type 2, Hx Hyperthyroidism, Hx Hypothyroidism Renal/ Medical History: Reports: Hx Kidney Stones GI Medical History: Reports: Hx Gastroesophageal Reflux Disease. Denies: Hx Cirrhosis, Hx Crohn's Disease, Hx Hepatitis, Hx Ulcerative Colitis Musculoskeltal Medical History: Reports Hx Arthritis, Denies Hx Gout Skin Medical History: Denies Hx Eczema, Denies Hx Psoriasis Infectious Medical History: Denies: Hx Hepatitis Past Surgical History: Reports: Hx Section - x3, Hx Cholecystectomy, Hx Hysterectomy, Hx Orthopedic Surgery, Hx Tonsillectomy Physical Exam - Vital signs Vitals: Temp Pulse Resp BP Pulse Ox 98.3 F 84 20 136/82 H 99 05/01/20 11:24 05/01/20 11:24 05/01/20 11:24 05/01/20 11:24 05/01/20 11:24 Course - Vital Signs Vital signs: Temp Pulse Resp BP Pulse Ox 98.3 F 84 20 136/82 H 99 05/01/20 11:53 05/01/20 11:24 05/01/20 11:24 05/01/20 11:24 05/01/20 11:24 Doctor's Discharge - Discharge Referrals: LAKSHMI BRITO, CHILDHOOD TEACHER [Primary Care Provider] - Follow up as needed
[2020-05-01 12:47] LABS: ABSOLUTE BASOPHILS # (AUTO) 0.1 10^3/uL (0.0-0.2); ABSOLUTE EOSINOPHILS # (AUTO) 0.4 10^3/uL (0.0-0.6); ABSOLUTE LYMPHOCYTES (AUTO) 1.9 10^3/uL (0.5-4.7); ABSOLUTE MONOCYTES (AUTO) 0.5 10^3/uL (0.1-1.4); ABSOLUTE NEUT (AUTO) 5.1 10^3/uL (1.7-8.2); BASOPHILS % (AUTO) 0.9 % (0-2); EOSINOPHILS % (AUTO) 5.2 % (0-6); HEMATOCRIT 41.7 % (36.0-47.0); HEMOGLOBIN 15.1 g/dL (12.0-15.5); MEAN CORPUSCULAR HEMOGLOBIN 32.6 pg (27.0-33.4); MEAN CORPUSCULAR HGB CONC 36.4 g/dL (32.0-36.0); MEAN CORPUSCULAR VOLUME 90 fl (80-97); MONOCYTES % (AUTO) 5.9 % (3-13); PLATELET COUNT 213 10^3/uL (150-450); RED BLOOD COUNT 4.65 10^6/uL (3.72-5.28); RED CELL DISTRIBUTION WIDTH 12.9 % (11.5-14.0); TOTAL CELLS COUNTED % (AUTO) 100 %
[2020-05-01 13:04] LABS: ALBUMIN 3.8 g/dL (3.5-5.0); ALKALINE PHOSPHATASE 71 U/L (38-126); ANION GAP 9 (5-19); ASPARTATE AMINO TRANSFERASE 23 U/L (14-36); BLOOD UREA NITROGEN 15 mg/dL (7-20); CALCIUM 9.2 mg/dL (8.4-10.2); CARBON DIOXIDE 28 mmol/L (22-30); CHLORIDE 100 mmol/L (98-107); GLUCOSE 154 mg/dL (75-110); TOTAL PROTEIN 6.7 g/dL (6.3-8.2)
--- NOTE | 2020-05-01 13:13 | RADIOLOGY REPORT (SQ) ---
EXAM DESCRIPTION: CHEST 2 VIEWS IMAGES COMPLETED DATE/TIME: 05/01/2020 12:56 pm REASON FOR STUDY: left chest pain COMPARISON: 10/20/2019 EXAM PARAMETERS: NUMBER OF VIEWS: two views TECHNIQUE: Digital Frontal and Lateral radiographic views of the chest acquired. RADIATION DOSE: NA LIMITATIONS: none FINDINGS: LUNGS AND PLEURA: No opacities, masses or pneumothorax. No pleural effusion. MEDIASTINUM AND HILAR STRUCTURES: No masses or contour abnormalities. HEART AND VASCULAR STRUCTURES: Heart normal size. No evidence for failure. BONES: No acute findings. HARDWARE: Cervical fusion hardware is present. OTHER: No other significant finding. IMPRESSION: No evidence of an acute cardiopulmonary process TECHNICAL DOCUMENTATION: JOB ID: [id number] 2010 [employer]- All Rights Reserved Reading location - IP/workstation name: [email or web address]
--- NOTE | 2020-05-01 13:16 | RADIOLOGY REPORT (SQ) ---
EXAM DESCRIPTION: SHOULDER LEFT 2 OR MORE VIEWS IMAGES COMPLETED DATE/TIME: 05/01/2020 12:56 pm REASON FOR STUDY: left shoulder pain COMPARISON: None. NUMBER OF VIEWS: Three views. TECHNIQUE: Internal rotation, external rotation, and Y view images acquired of the left shoulder. LIMITATIONS: None. FINDINGS: MINERALIZATION: Normal. BONES: No acute fracture. No worrisome bone lesions. JOINTS: No dislocation. Mild degenerative changes of the acromioclavicular joint. VISUALIZED LUNGS AND RIBS: No pneumothorax. No rib fracture. SOFT TISSUES: No radiopaque foreign body. OTHER: No other significant finding. IMPRESSION: Mild degenerative changes. No acute findings. TECHNICAL DOCUMENTATION: JOB ID: [id number] 2010 [employer]- All Rights Reserved Reading location - IP/workstation name: [email or web address]
[2020-05-01] MEDS ORDERED: MORPHINE SULFATE 10 MG/ML INJ IV ONE (13:52)
[2020-05-01] MEDS ORDERED: KETOROLAC TROMETHAMINE INJ/PF 30 MG/1 ML SDV IV ONE (13:54)
[2020-05-01] MEDS ORDERED: LORAZEPAM INJ 2 MG/1 ML VIAL IV ONE (13:56)
--- NOTE | 2020-05-01 15:00 | RADIOLOGY REPORT (SQ) ---
EXAM DESCRIPTION: CT THORACIC SPINE WITHOUT IMAGES COMPLETED DATE/TIME: 05/01/2020 2:46 pm REASON FOR STUDY: Radiculopathy COMPARISON: CT cervical spine same date TECHNIQUE: Axial images acquired through the thoracic spine without intravenous contrast. Images re viewed with lung, soft tissue and bone windows. Reconstructed coronal and sagittal MPR images review ed. Images stored on PACS. All CT scanners at this facility use dose modulation, iterative reconstruction, and/or weight based d osing when appropriate to reduce radiation dose to as low as reasonably achievable (ALARA). [facility]: Dose Right [facility]: CareDose [facility]: Dose Right [facility]: Teradose 4D [facility]: Smart 2theloo RADIATION DOSE: CT Rad equipment meets quality standard of care and radiation dose reduction techniq ues were employed. CTDIvol: 94.0 mGy. DLP: 3744 mGy-cm. mGy. LIMITATIONS: None. FINDINGS: VISUALIZED LUNGS: No acute opacities. No pneumothorax. SOFT TISSUES: No soft tissue swelling. No masses. VERTEBRAL BODIES: No fractures. No dislocation. No acute findings. DISCS: At the T8-9 level, disc space loss of height is present with vacuum disc phenomenon. No post erior disc bulging or central or foraminal stenosis. At the T9-10 level, disc space loss of height is present vacuum disc phenomenon. Central and left pa racentral disc bulge and bony spurring is present without significant central or foraminal stenosis. ALIGNMENT: Normal. TRANSVERSE PROCESSES, POSTERIOR ELEMENTS: No fractures. No dislocation. No acute findings. HARDWARE: None in the spine. VISUALIZED RIBS: No fractures. OTHER: No other significant finding. IMPRESSION: No significant central or foraminal stenosis. Degenerative disc changes at T8-9 and T9- 10 TECHNICAL DOCUMENTATION: JOB ID: [id number] Quality ID # [id number]: Final reports with documentation of one or more dose reduction techniques (e.g., Au tomated exposure control, adjustment of the mA and/or kV according to patient size, use of iterative reconstruction technique) 2010 [employer]- All Rights Reserved Reading location - IP/workstation name: [email or web address]
--- NOTE | 2020-05-01 15:07 | RADIOLOGY REPORT (SQ) ---
EXAM DESCRIPTION: CT CERVICAL SPINE WITHOUT IMAGES COMPLETED DATE/TIME: 05/01/2020 2:46 pm REASON FOR STUDY: Radiculopathy COMPARISON: CT thoracic spine same date MRI cervical spine 10/23/2019 TECHNIQUE: Axial images acquired through the cervical spine without intravenous contrast. Images re viewed with lung, soft tissue and bone windows. Reconstructed coronal and sagittal MPR images review ed. Images stored on PACS. All CT scanners at this facility use dose modulation, iterative reconstruction, and/or weight based d osing when appropriate to reduce radiation dose to as low as reasonably achievable (ALARA). [facility]: Dose Right [facility]: CareDose [facility]: Dose Right [facility]: Teradose 4D [facility]: Smart Total Immersion RADIATION DOSE: CT Rad equipment meets quality standard of care and radiation dose reduction techniq ues were employed. CTDIvol: 22.3 mGy. DLP: 456 mGy-cm. mGy. LIMITATIONS: None. FINDINGS: ALIGNMENT: Anatomic. MINERALIZATION: Normal. VERTEBRAL BODIES: No fractures or dislocation. DISCS: Craniocervical junction, C1-2, C2-3, C3-4 are unremarkable. At C4-5, broad diffuse posterior disc bulging is present, partially effacing the ventral thecal sac w ithout significant central or foraminal encroachment. This best shown on sagittal image 24 and axial image 38. At C5-6, patient post discectomy and fusion, incorporated bone graft. No central or foraminal stenos is. At C6-7, patient is post discectomy and fusion, incorporated bone graft. No central or foraminal richelel nosis. C7-T1 is unremarkable. FACETS, LATERAL MASSES, POSTERIOR ELEMENTS: No acute findings HARDWARE: Anterior fixation plate with anchoring screws in the C5, C6, and C7 vertebral bodies VISUALIZED RIBS: No fractures. LUNG APICES AND SOFT TISSUES: 3 x 2 cm mass left lower pole thyroid axial image 59, coronal image 13. Dedicated thyroid ultrasound is recommended for followup OTHER: No other significant finding. IMPRESSION: Stable appearance compared to MRI 10/23/2019. Posterior disc bulging at C4-5 without si gnificant central or foraminal stenosis. Fusion at C5-6 and C6-7 without recurrent central or foraminal stenosis Incidental finding of a 3 x 2 cm mass left lower pole thyroid, for which dedicated ultrasound follow- up is recommended TECHNICAL DOCUMENTATION: JOB ID: [id number] Quality ID # [id number]: Final reports with documentation of one or more dose reduction techniques (e.g., Au tomated exposure control, adjustment of the mA and/or kV according to patient size, use of iterative reconstruction technique) 2010 [employer]- All Rights Reserved Reading location - IP/workstation name: [email or web address]
--- NOTE | 2020-05-01 16:40 | ER Document Report ---
ED General - General Chief Complaint: Chest Pain Stated Complaint: SHOULDER PAIN Time Seen by Provider: 05/01/20 11:58 Primary Care Provider: LAKSHMI BRITO NP [Primary Care Provider] - Follow up as needed Mode of Arrival: Ambulatory Notes: 49-year-old woman presents to the emergency department with a complaint of pain in her left shoulder arm tingling in her hand and pain involving the posterior aspect of the upper back and around the shoulder blade on the left side. She notes that she has had surgery on her neck with fusion and discectomy approximately 10 years ago. She is also had lumbar back surgery in the past. She denies any new injury or event which may have triggered the pain. Her notes that she had a flareup of pain in December, however, the symptoms improved and for the past 3 weeks she has had worsening symptoms. She has been treated with gabapentin 600 mg 3 times a day, Medrol Dosepak, cyclobenzaprine, Naprosyn 500 mg twice a day. Patient states that the medication is not controlling her pain. TRAVEL OUTSIDE OF THE [place] IN LAST 30 DAYS: No - Related Data Allergies/Adverse Reactions: acetaminophen [From Percocet] Allergy (Verified 05/01/20 11:53) hydromorphone [From Dilaudid] Allergy (Verified 05/01/20 11:53) oxycodone [From Percocet] Allergy (Verified 05/01/20 11:53) Home Medications: colestipol. gabapentin. omeprazole. zyrtec. allopurinol. atenolol. aleve. hctz. elzvil. metformin. atorvastatin. robaxin Past Medical History - General Information source: Patient - Social History Smoking Status: Never Smoker Chew tobacco use (# tins/day): No Frequency of alcohol use: None Drug Abuse: None Family History: denies: CAD, DM, Hypertension, Malignancy Patient has homicidal ideation: No - Past Medical History Cardiac Medical History: Reports: Hx Hypercholesterolemia, Hx Hypertension Pulmonary Medical History: Reports: Hx Bronchitis Denies: Hx Asthma, Hx COPD, Hx Respiratory Failure Neurological Medical History: Denies: Hx Seizures Endocrine Medical History: Denies: Hx Diabetes Mellitus Type 1, Hx Diabetes Mellitus Type 2, Hx Hyperthyroidism, Hx Hypothyroidism Renal/ Medical History: Reports: Hx Kidney Stones GI Medical History: Reports: Hx Gastroesophageal Reflux Disease. Denies: Hx Cirrhosis, Hx Crohn's Disease, Hx Hepatitis, Hx Ulcerative Colitis Musculoskeletal Medical History: Reports Hx Arthritis, Denies Hx Gout Skin Medical History: Denies Hx Eczema, Denies Hx Psoriasis Infectious Medical History: Denies: Hx Hepatitis Past Surgical History: Reports: Hx Section - x3, Hx Cholecystectomy, Hx Hysterectomy, Hx Orthopedic Surgery, Hx Tonsillectomy Review of Systems - Review of Systems Notes: Constitutional: Negative for fever. HENT: Negative for sore throat. Eyes: Negative for visual changes. Cardiovascular: Negative for chest pain. Respiratory: Negative for shortness of breath. Gastrointestinal: Negative for abdominal pain, vomiting or diarrhea. Genitourinary: Negative for dysuria. Musculoskeletal: + Left shoulder, left arm pain Skin: Negative for rash. Neurological: + Left upper extremity paresthesia 10 point ROS negative except as marked above and in HPI. Physical Exam - Vital signs Vitals: Temp Pulse Resp BP Pulse Ox 98.3 F 84 20 136/82 H 99 05/01/20 11:24 05/01/20 11:24 05/01/20 11:24 05/01/20 11:24 05/01/20 11:24 - Notes Notes: PHYSICAL EXAMINATION: Physical Exam: General: Well-nourished well-developed 49 yo moderate distress secondary to pain in the left upper extremity and upper back left side. HEENT: NC/AT, pupils equal round and reactive to light, MM moist,nares clear, oropharynx clear, airway patent Neck: Decreased flexion and extension of the neck secondary to prior surgery and pain. Lungs: clear, no wheezing, no rales no rhonchi CVS: Regular rate and rhythm no murmur gallop or rub Abdomen: Soft, active, nontender, no masses, no hepatosplenomegaly Ext: Left upper extremity no focal tenderness to palpation at the shoulder, upper arm and forearm. Patient has good security alarm technician and good sensation in the thumb index and fifth finger. Neurovascular intact. Back: Tenderness in the left upper back at the T3 level extending along the parascapular region on the left. Neuro: Alert and responsive, moving all 4 extremities on command, cranial nerves intact, no focal findings Skin: Intact no open lesions, no rash PSYCH: Normal mood, normal affect. Course - Re-evaluation Re-evalutation: 05/01/20 16:40 The patient was given Toradol 30 mg IV, Decadron 10 mg IV, and hydromorphone 0.5 mg IV. She has some relief of her pain. CT scan of the cervical and thoracic spines reveal bulging disc broadbase at - Vital Signs Vital signs: Temp Pulse Resp BP Pulse Ox 98.3 F 84 14 105/68 96 05/01/20 11:53 05/01/20 11:24 05/01/20 15:01 05/01/20 15:00 05/01/20 15:01 - Laboratory Result Diagrams: 05/01/20 12:34 05/01/20 12:34 Laboratory results interpreted by me: 05/01/20 05/01/20 12:34 12:34 MCHC 36.4 H Sodium 136.7 L Creatinine 0.51 L Glucose 154 H Magnesium 1.5 L 05/01/20 17:00 I have reviewed laboratory data and used this information for the treatment decisions regarding the patient. - Diagnostic Test Radiology reviewed: Image reviewed, Reports reviewed Radiology results interpreted by me: 05/01/20 16:45 Left shoulder x-ray: No fracture seen, mild degenerative changes. Chest x-ray: No acute cardiopulmonary findings. CT cervical spine: C4-C5 broad-based bulging discs posterior narrowing., C5-C6 fused prior surgery, C6-C7 prior discectomy, C7-T1 no findings. CT Thoracic Spine: T8-T9 disc space loss of height, no posterior bulging disc. T9-T10 disc space loss of height, central and left paracentral bulging disks with narrowing noted. - EKG Interpretation by Me EKG shows normal: Sinus rhythm, [place], Intervals, QRS Complexes - Low voltage in the frontal leads, no acute ST or T wave changes, no signs of ischemic change., ST-T Waves Rate: Normal - 77 Rhythm: NSR Discharge - Discharge Clinical Impression: Cervical radiculopathy at C5, Cervical disc disease, Thoracic disc disease Thoracic back pain Qualifiers: Chronicity: unspecified Back pain laterality: left Qualified Code(s): M54.6 - Pain in thoracic spine Condition: Good Disposition: HOME, SELF-CARE Instructions: Oral Narcotic Medication ([facility]), Radiculopathy ([facility]) Additional Instructions: You were seen in the emergency department with a history of pain radiating into the left arm and also pain in the left upper back. This appears to be related to degenerative disc disease in the neck and upper back. Please follow-up with your back pain neurology doctor. You are given prescriptions for Flexeril and a Dosepak of [place] to use at home. Please continue the Naprosyn and Neurontin as previously prescribed. HOME CARE INSTRUCTIONS & INFORMATION: Thank you for choosing us for your medical needs. We hope you're satisfied with the care you received. After you leave, you must properly care for your problem and, at the same time, observe its progress. Any condition can change. Some illnesses can change rapidly over hours or days. If your condition worsens, return to the Emergency Department or see your physician promptly. ABOUT YOUR X-RAYS AND EKG'S: If you had an EKG or X-rays taken, they have been read by the Emergency Physician. The X-rays and EKG's will also be read by a Radiologist or Mitering Machine Operator within 24 hours. If discrepancies are noted, you will be notified by telephone. Please be certain the ED has a correct telephone number & address where you can be reached. Also, realize that some fractures or abnormalities do not show up on initial X-rays. If your symptoms continue, see your physician. ABOUT YOUR LABORATORY TEST: If you had laboratory tests, the results have been reviewed by the Emergency Physician. Some test results (for example cultures) may not be available for several days. You will be contacted if any test result shows you need additional treatment. Please be certain the ED has a correct telephone number and address where you can be reached. ABOUT YOUR MEDICATIONS: You will receive instructions on how to take your medicine on the prescription label you receive. Additional information may be provided by the Pharmacy. If you have questions afterwards, call the ED for clarification or further instructions. Some prescribed medications may cause drowsiness. Do not perform tasks such as driving a car or operating machinery without consulting your Pharmacist. If you feel you need a refill of pain medication, your condition will need re-evaluation. Please do not call for a refill of any medication. ABOUT YOUR SIGNATURE: Signature of this document acknowledges to followin. Understanding that you received emergency treatment and that you may be released before al medical problems are known or treated. Please be certain the ED has a correct phone number & address where you can be reached. 2. Acknowledgement that you will arrange for follow-up care as recommended. 3. Authorization for the Emergency Physician to provide information to your follow-up Physician in order to maximize your care. AT ANY TIME, IF YOUR SYMPTOMS CHANGE SIGNIFICANTLY OR WORSEN OR YOU DEVELOP NEW SYMPTOMS, RETURN TO THE EMERGENCY DEPARTMENT IMMEDIATELY FOR RE-EVALUATION. OUR GOAL IS TO PROVIDE EXCELLENT MEDICAL CARE! WE HOPE THAT WE HAVE MET YOUR EXPECTATIONS DURING YOUR EMERGENCY DEPARTMENT VISIT AND THAT YOU FEEL YOU HAVE RECEIVED EXCELLENT CARE! Prescriptions: Cyclobenzaprine HCl [Flexeril 10 mg Tablet] 10 mg PO TIDP PRN #15 tab PRN Reason: Referrals: LAKSHMI BRITO, RAIL CAR MAINTENANCE MECHANIC [Primary Care Provider] - Follow up as needed
[2020-05-01] MEDS ORDERED: HYDROCODONE/ACETAMINOPHEN 5-325 MG (6 TAB/ER DISP) PO PRN (16:57)
--- NOTE | 2020-05-01 17:24 | EKG REPORT ---
SEVERITY:- OTHERWISE NORMAL ECG - SINUS RHYTHM LOW VOLTAGE IN FRONTAL LEADS : Confirmed by: Carla Lin MD 01-May-2020 17:23:58
[2020-05-01 17:27] VITALS: BP 106/70
== END 2020-05-01 17:30 | disposition home or self-care (01) ==
LOC: ER 11:19
DX: M50.121 Cervical disc disorder at C4-C5 level with radiculopathy (principal); M47.814 Spondylosis without myelopathy or radiculopathy, thoracic region; M51.84 Other intervertebral disc disorders, thoracic region; E07.9 Disorder of thyroid, unspecified; I10 Essential (primary) hypertension; E78.00 Pure hypercholesterolemia, unspecified; K21.9 Gastro-esophageal reflux disease without esophagitis; Z98.1 Arthrodesis status; Z79.899 Other long term (current) drug therapy; Z79.84 Long term (current) use of oral hypoglycemic drugs; Z79.1 Long term (current) use of non-steroidal anti-inflammatories (NSAID)
CPT/HCPCS: 93005; 99284; 96374; 96375; 36415; 83735; 85025; 80053; 84484; 71046; 73030; 72125; 72128; 93010; J1885; J2270; J2060

== ENCOUNTER → 2020-05-10 | Outpatient (CLI) | payer BC ==
--- NOTE | 2020-05-10 13:10 | RADIOLOGY REPORT (SQ) ---
EXAM DESCRIPTION: CERV SP 4 OR 5 VIEWS IMAGES COMPLETED DATE/TIME: 05/10/2020 12:07 pm REASON FOR STUDY: CERVICAL RADICULOPATHY (M54.12), LEFT SHOULDER PAIN (M25.512), S/P C SP FU'S M54.1 2 RADICULOPATHY, CERVICAL REGION M25.512 PAIN IN LEFT SHOULDER Z98.1 ARTHRODESIS STATUS COMPARISON: None. NUMBER OF VIEWS: Five views. TECHNIQUE: An AP view was obtained. Lateral views were obtained in neutral, flexion, and extension, and a swimmer's lateral view was obtained. LIMITATIONS: None. FINDINGS: MINERALIZATION: Normal. ALIGNMENT: Anatomic. VERTEBRAE: Vertebral bodies of normal height. DISCS: Surgical changes from C5-C7 with disc implants. The C4-5 disc space is maintained, but there are anterior osteophytes. LATERAL AND POSTERIOR ELEMENTS: Facets, lateral masses and spinous processes without significant find ings. FLEXION/EXTENSION: No significant change. HARDWARE: Anterior plate from C5-C7 with screws into the vertebral bodies and disc implants. SOFT TISSUES: No masses or calcifications. Lung apices clear. OTHER: No other significant finding. IMPRESSION: Prior ACDF. Spondylosis. The C-spine is stable on flexion and extension. TECHNICAL DOCUMENTATION: JOB ID: [id number] 2010 [employer]- All Rights Reserved Reading location - IP/workstation name: [email or web address]
--- NOTE | 2020-05-10 13:58 | RADIOLOGY REPORT (SQ) ---
EXAM DESCRIPTION: MRI CERVICAL SPINE WITHOUT IMAGES COMPLETED DATE/TIME: 05/10/2020 11:55 am REASON FOR STUDY: CERVICAL RADICULOPATHY (M54.12), LEFT SHOULDER PAIN (M25.512) M54.12 RADICULOPATH Y, CERVICAL REGION M25.512 PAIN IN LEFT SHOULDER Z98.1 ARTHRODESIS STATUS COMPARISON: 10/23/2019 TECHNIQUE: Sagittal and Axial imaging includes T1, T2, STIR and gradient echo sequences. LIMITATIONS: None. FINDINGS: ALIGNMENT: Normal. VERTEBRAE: Intact. BONE MARROW: Normal. No marrow replacement or reactive changes. DISCS: Normal. No significant abnormal signal or loss of height. HARDWARE: ACDF C5-C7. CORD AND BASE OF BRAIN: Normal in size and signal intensity. SOFT TISSUES: No soft tissue masses. C1-C2: No significant spinal stenosis. C2-C3: No significant spinal stenosis or exit foraminal stenosis. C3-C4: No significant spinal stenosis or exit foraminal stenosis. C4-C5: Midline disc protrusion contacts the cord but does not deform the cord. This is stable. C5-C6: No significant spinal stenosis or exit foraminal stenosis. C6-C7: No significant spinal stenosis or exit foraminal stenosis. C7-T1: No significant spinal stenosis or exit foraminal stenosis. UPPER THORACIC: Incompletely imaged. No significant spinal stenosis or exit foraminal stenosis. OTHER: No other significant finding. IMPRESSION: 1. ACDF C5-C7. 2. Midline disc protrusion is present at C4-5 that contacts the cord but does not deform the cord. This appears stable. TECHNICAL DOCUMENTATION: JOB ID: [id number] 2010 [employer]- All Rights Reserved Reading location - IP/workstation name: [email or web address]
== END ==
LOC: RAD 11:08
PROVIDERS: ATTEND Physician Assistant
DX: M50.121 Cervical disc disorder at C4-C5 level with radiculopathy (principal); M25.512 Pain in left shoulder; Z98.1 Arthrodesis status
CPT/HCPCS: 72050; 72141